=== PATIENT | female | born 1995 | race Caucasian/White ===

== ENCOUNTER 2024-03-31 21:53 | Emergency (ER) | payer BC ==
[2024-03-31] MEDS: Lidocaine 2% Viscous Solution 15 ML UD PO STA (22:51)
[2024-03-31] MEDS: Amoxicillin/Clavulanate K 875-125 MG Tab PO STA (22:51)
[2024-03-31] MEDS: oxyCODONE 5 MG Tab PO STA (22:51)
[2024-03-31] MEDS: Benzocaine 20% Topical Spray UD MUCMEM STA (22:51)
== END 2024-03-31 23:03 | disposition home or self-care (01) ==
LOC: MW.ED 21:53
DX: K04.7 Periapical abscess without sinus (principal); Z75.8 Other problems related to medical facilities and other health care; Z91.040 Latex allergy status; Z88.8 Allergy status to other drugs, medicaments and biological substances; Z79.899 Other long term (current) drug therapy
CPT/HCPCS: 99282; 99283; A9270-GY